=== PATIENT | female | born 1940 | race Two or more races ===

== ENCOUNTER 2016-09-07 10:54 | Emergency (ER) | payer MEDICARE, MEDICAID ==
[~2016-09-07] VITALS: Ht 170.2 cm; Wt 113.4 kg
--- NOTE | 2016-09-07 10:55 | NUR ---
PT TO ED ROOM 01. LOWER BACK PAIN RADIATES TO TLE X 3 DAYS. DENIES RECENT FALLS/INJURIES. A/A/O. VS WNL. AMBULATORY WITH CANE. CHANGED TO GOWN. SIDE RAILS UP. HOB ELEVATED. CONNECTED TO MONITOR. AWAITING EVALUATION BY ER PROVIDER.
[2016-09-07] MEDS ORDERED: ONDANSETRON 4 MG TAB.RAPDIS ONE (11:18)
[2016-09-07] MEDS ORDERED: MORPHINE SULFATE INJ 4 MG/ML DISP.SYRIN ONE (11:18)
[2016-09-07] MEDS: ONDANSETRON 4 MG TAB.RAPDIS SL ONE (11:24)
[2016-09-07] MEDS: MORPHINE SULFATE INJ 2 MG/ML DISP.SYRIN IM ONE (11:24)
[2016-09-07] MEDS ORDERED: HYDROCODONE/APAP 5/325MG 1 EACH TABLET PO ONE (11:30)
--- NOTE | 2016-09-07 11:30 | NUR ---
PT TAKEN TO XRAY VIA WC
--- NOTE | 2016-09-07 11:45 | NUR ---
PT IS BACK FROM RADIOLOGY VIA WHEELCHAIR IN STABLE CONDITION.
[2016-09-07 12:44] VITALS: BP 95/50
--- NOTE | 2016-09-07 12:44 | NUR ---
Patient discharged to home in stable condition. Written and verbal after care instructions given. Patient verbalizes understanding of instruction.
== END 2016-09-07 12:45 | disposition home or self-care (01) ==
LOC: ER 10:55
DX: M54.41 Lumbago with sciatica, right side (principal); G89.29 Other chronic pain; I10 Essential (primary) hypertension; M19.90 Unspecified osteoarthritis, unspecified site; E11.9 Type 2 diabetes mellitus without complications; Z85.828 Personal history of other malignant neoplasm of skin
CPT/HCPCS: 72110; 96372; 99284; A4606; J2270; Q0162; Z7610